=== PATIENT | male | born 1960 | race Caucasian/White ===

== ENCOUNTER 2022-11-13 12:12 | Emergency (ER) | payer OTHER ==
[~2022-11-13] VITALS: Ht 180.3 cm; Wt 113.4 kg
--- NOTE | 2022-11-13 12:33 | NUR ---
Brody barnett in [facility] - 11/13/22 at 1233 by [email or web address] Placed in room 04 . Placed on cardiac catheterization technologist, blood pressure machine and pulse oximeter. To gown for exam. Side rails up. Report given to Mayco YOO
[2022-11-13 12:44] VITALS: PULSE 81; RESP 18; TEMP 98.3; O2SAT 98
--- NOTE | 2022-11-13 13:00 | NUR ---
PT BIB SELF AWAKE AND ALERT AOX4, NO SOB OR DISTRESS. PT C/O SWOLLEN MOUTH. PT STATED HE TEETH WAS HURTING HIM FOR A FEW AND HIS DENTIST GAVE HIM AMOXICILLIN. AFTER TAKING THE AMOCICILLIN PT WOKE UP TO SWOLLEN L SIDE OF MOUTH.
--- NOTE | 2022-11-13 13:37 | NUR ---
DR DOUGHERTY AT BEDSIDE
[2022-11-13 14:21] LABS: BASOPHILS % (AUTO) 0.4 % (0.0-2.0); EOSINOPHILS # (AUTO) 0.4 K/uL (0.0-0.4); EOSINOPHILS % (AUTO) 4.8 % (0.0-4.0); HEMATOCRIT 48.9 % (36-54); HEMOGLOBIN 16.2 g/dL (14.0-18.0); LYMPHOCYTES # (AUTO) 1.6 K/uL (1.0-5.5); LYMPHOCYTES % (AUTO) 17.7 % (20.5-51.5); MEAN CORPUSCULAR HEMOGLOBIN 30 pg (27-31); MEAN CORPUSCULAR HGB CONC 33 % (32-36); MEAN CORPUSCULAR VOLUME 91 fL (79.0-98.0); MONOCYTES # (AUTO) 0.7 K/uL (0.0-1.0); NEUTROPHILS # (AUTO) 6.2 K/uL (1.8-7.7); NEUTROPHILS % (AUTO) 69.1 % (40.0-70.0); PLATELET COUNT (AUTO) 213 K/uL (130-430); RED BLOOD CELL COUNT(AUTO) 5.37 MIL/uL (4.2-6.2); RED CELL DISTRIBUTION WIDTH 15.3 % (9.0-15.0); WHITE BLOOD COUNT (AUTO) 8.9 K/uL (4.8-10.8)
[2022-11-13 14:23] LABS: CALCIUM 8.7 mg/dL (8.4-11.0); CREATININE 1.12 mg/dL (0.55-1.30)
[2022-11-13 14:56] LABS: ALBUMIN 3.9 g/dL (3.4-4.8); TOTAL BILIRUBIN 1.9 mg/dL (0.0-1.0)
[2022-11-13] MEDS ORDERED: IBUP-1971 PO (15:16)
[2022-11-13] MEDS ORDERED: CLIN-142 PO (15:16)
[2022-11-13 16:55] VITALS: BP_SYST 125; PULSE 81; RESP 18; TEMP 98.3; O2SAT 98
--- NOTE | 2022-11-13 16:55 | NUR ---
Patient given written and verbal discharge instructions and verbalizes understanding. ER MD discussed with patient the results and treatment provided. Patient in stable condition. ID arm band removed. Rx of Clindamycin, Ibuprofen given. Patient educated on pain management and to follow up with PMD. Pain Scale 2/10 . Opportunity for questions provided and answered. Medication side effect fact sheet provided.
== END 2022-11-13 16:55 | disposition home or self-care (01) ==
LOC: SED 12:12
DX: K04.7 Periapical abscess without sinus (principal); L03.211 Cellulitis of face; K08.89 Other specified disorders of teeth and supporting structures; Z79.899 Other long term (current) drug therapy
CPT/HCPCS: 36415; 80053; 83605; 85025; 99283